=== PATIENT | female | born 1965 | race Caucasian/White ===

== ENCOUNTER 2024-02-22 16:30 | Emergency (ER) | payer OTHER ==
[2024-02-22 16:43] VITALS: TEMP 98; BMI 26.4
[2024-02-22] MEDS ORDERED: FAMOTIDINE 20 MG TABLET ONE (18:19)
[2024-02-22] MEDS ORDERED: MAG HYDROX/AL HYDROX/SIMETH 30 ML UNIT-DOSE CUP ONE (18:20)
[2024-02-22] MEDS ORDERED: ACETAMINOPHEN INJECTION 100 ML ONE (18:20)
[2024-02-22] MEDS ORDERED: SUCRALFATE 1 GM TABLET (FP) ONE (18:20)
[2024-02-22] MEDS: ACETAMINOPHEN 1000 MG/100 ML BAG IVPB ONE (18:42)
[2024-02-22] MEDS: MAG HYDROX/AL HYDROX/SIMETH 30 ML UNIT-DOSE CUP PO ONE (18:42)
[2024-02-22] MEDS: FAMOTIDINE 20 MG TABLET PO ONE (18:43)
[2024-02-22] MEDS: SUCRALFATE 1 GM TABLET (FP) PO ONE (18:43)
[2024-02-22 19:20] LABS: BASO % 0.6 % (0-2.0); EOS % 1.9 % (0-4.5); HEMATOCRIT 39.1 % (32.4-45.2); HEMOGLOBIN 12.6 GM/dL (10.7-15.3); LYMPH % 33.9 % (8-40); MCH 29.8 pg (25.7-33.7); MCHC 32.3 g/dl (32.0-36.0); MEAN CELL VOLUME 92.4 fl (80-96); MEAN PLT VOLUME 9.5 fl (7.5-11.1); MONO % 5.2 % (3.8-10.2); NEUT % 58.4 % (42.8-82.8); PLATELET COUNT 292 10^3/uL (134-434); RBC 4.23 M/mm3 (3.60-5.2); RDW 14.4 % (11.6-15.6); WHITE BLOOD COUNT 10.7 K/mm3 (4.0-10.0)
[2024-02-22 19:21] LABS: PH,URINE 6.5 (5.0-8.0); URINE APPEARANCE CLEAR; URINE BILIRUBIN NEGATIVE (NEGATIVE); URINE COLOR YELLOW; URINE GLUCOSE (UA) NEGATIVE (NEGATIVE); URINE KETONE NEGATIVE (NEGATIVE); URINE LEUK ESTERASE NEGATIVE (NEGATIVE); URINE NITRITE NEGATIVE (NEGATIVE); URINE PROTEIN NEGATIVE (NEGATIVE); URINE UROBILINOGEN 0.2 mg/dL (0.2-1.0)
[2024-02-22 19:48] LABS: POTASSIUM 4.4 mmol/L (3.5-5.1)
[2024-02-22 19:50] LABS: ALBUMIN 3.9 g/dl (3.4-5.0); CALCIUM 9.9 mg/dL (8.5-10.1)
[2024-02-22 19:51] LABS: BLOOD UREA NITROGEN 19.5 mg/dL (7-18)
[2024-02-22 19:53] LABS: CREATININE 0.8 mg/dL (0.55-1.3)
[2024-02-22 19:55] LABS: BILIRUBIN,TOTAL 0.2 mg/dL (0.2-1); TOT PROT 7.9 g/dl (6.4-8.2)
[2024-02-22 21:01] VITALS: BP 105/62; PULSE 64; RESP 14
== END 2024-02-22 21:01 | disposition home or self-care (01) ==
LOC: JER 16:30
PROC: 3E033NZ Introduction of Analgesics, Hypnotics, Sedatives into Peripheral Vein, Percutaneous Approach (ICD-10-PCS; principal; 2024-02-22)
DX: R10.13 Epigastric pain (principal); R07.9 Chest pain, unspecified; R09.81 Nasal congestion; R53.83 Other fatigue; R06.02 Shortness of breath; Z20.822 Contact with and (suspected) exposure to COVID-19
CPT/HCPCS: 0241U-QW; 36415; 71045-TC-FY; 80053; 81003; 83690; 84484; 85025; 93005; 93010; 99285-25; J0131